=== PATIENT | female | born 1970 | race Caucasian/White ===

== ENCOUNTER 2021-03-23 15:35 | Outpatient (CLI) | payer OTHER, SELFPAY ==
--- NOTE | ~2021-03-23 | MM_ITS ---
EXAMINATION: MM screening blanche BI w griselda HISTORY: Screening TECHNIQUE: Craniocaudal and mediolateral oblique 3-D tomosynthesis images were obtained and synthetic 2-D images were generated. CAD analysis was submitted and interpreted. COMPARISON: No prior mammogram is available for comparison at this institution. BREAST PARENCHYMAL COMPOSITION: There are scattered areas of fibroglandular density. FINDINGS: There is no evidence of suspicious mass, calcification, or architectural distortion to sugg est malignancy in either breast. There has been no suspicious interval change. IMPRESSION: 1. No mammographic evidence of malignancy. 2. Recommend routine screening mammography in one year. BI-RADS Category 1: Negative Reviewed, dictated and finalized at location A.
== END 2021-03-23 15:36 | disposition home or self-care (01) ==
DX: Z12.31 Encounter for screening mammogram for malignant neoplasm of breast (principal)
CPT/HCPCS: 77063; 77067

== ENCOUNTER 2022-08-03 15:07 | Outpatient (CLI) | payer OTHER, SELFPAY ==
--- NOTE | ~2022-08-03 | MM_ITS ---
EXAMINATION: MM screening blanche BI w griselda HISTORY: Screening mammogram TECHNIQUE: Craniocaudal and mediolateral oblique 3-D tomosynthesis images were obtained and synthetic 2-D images were generated. CAD analysis was submitted and interpreted. COMPARISON: 03/23/2021 bilateral screening mammogram BREAST PARENCHYMAL COMPOSITION: There are scattered areas of fibroglandular density. FINDINGS: Right breast: There is no evidence of suspicious mass, calcification, or architectural distortion to suggest malignancy in either breast. There has been no suspicious interval change. Left breast: Possible architectural distortion in the posterior mid to upper right breast on MLO view . Diagnostic left mammogram is recommended, with ultrasound if required IMPRESSION: 1. Possible architectural distortion on the left 2. Diagnostic left mammogram is recommended, with ultrasound if required BI-RADS Category 0: Incomplete: Needs additional imaging evaluation. Reviewed, dictated and finalized at location A. 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
== END 2022-08-03 15:08 | disposition home or self-care (01) ==
PROVIDERS: Visit Provider Family Medicine
DX: Z12.31 Encounter for screening mammogram for malignant neoplasm of breast (principal); R92.8 Other abnormal and inconclusive findings on diagnostic imaging of breast
CPT/HCPCS: 77063; 77067

== ENCOUNTER 2022-10-05 11:45 | Outpatient (CLI) | payer OTHER, SELFPAY ==
--- NOTE | ~2022-10-05 | MMUS_ITS ---
EXAMINATION: MM diagnostic blanche LT w griselda, US breast LT complete HISTORY: Follow-up possible architectural distortion of the left breast TECHNIQUE: Additional 3-D tomosynthesis images of the left breast were performed and synthetic 2-D im ages were generated. CAD analysis was submitted and interpreted. High resolution complete left breast ultrasound was performed. COMPARISON: Comparison to multiple prior studies sequentially, with oldest reviewed study dated 03/23. BREAST PARENCHYMAL COMPOSITION: Breast composed of scattered areas of fibroglandular density FINDINGS: MAMMOGRAPHIC FINDINGS: There are no suspicious masses, calcifications or architectural distortion in the left breast to sugg est malignancy. ULTRASOUND: Complete US of all 4 quadrants of the left breast and retroareolar region was reviewed. Normal hetero geneous echotexture without evidence for focal solid or cystic mass. IMPRESSION: 1. No evidence for malignancy in the left breast. 2. Routine yearly screening mammogram and regular clinical breast examination are recommended. BI-RADS Category 1: Negative Reviewed, dictated and finalized at location A. 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 No evidence for malignancy in the left breast. 2. Routine yearly screening mammogram and regular clinical breast examination a re recommended. BI-RADS Category 1: Negative
== END 2022-10-05 11:46 | disposition home or self-care (01) ==
PROVIDERS: Visit Provider Family Medicine
DX: R92.8 Other abnormal and inconclusive findings on diagnostic imaging of breast (principal)
CPT/HCPCS: 76641; 77061; 77065; G0279

== ENCOUNTER 2023-08-15 10:31 | Outpatient (CLI) | payer OTHER, SELFPAY ==
--- NOTE | ~2023-08-15 | DEXA_ITS ---
Bone Density Report Name: KESHIA CLANCY I Age: 53 Sex: Female Ethnicity: White Date of : 1970 Indication: hyperparathyroidism; height loss; Referring Provider: JASS HARDIN Study: Bone densitometry was performed. Exam Date: August 15, 2023 Accession number: [id number] Bone Density: Region BMD T-score Z-score Classification AP Spine(L1-L4) 1.065 0.2 1.0 Normal Femoral Neck (Left) 0.856 0.1 0.9 Normal Total Hip (Left) 1.057 0.9 1.5 Normal Femoral Neck (Right) 0.864 0.1 0.9 Normal Total Hip (Right) 1.065 1.0 1.5 Normal Femoral Neck Mean 0.860 0.1 0.9 Normal Total Hip Mean 1.061 1.0 1.5 Normal World Health Organization criteria for BMD impression classify patients as: Normal (T-score at or above -1.0), Osteopenia (T-score between -1.0 and -2.5), or Osteoporosis (T-score at or below -2.5). 10-year Fracture Risk: FRAX not reported because: All T-scores for Spine Total, Hip Total, Femoral Neck at or above -1.0 Clinical Information Provided by Patient: Has used the following medications: Vitamin D, Calcium Has the following medical conditions: Hyperparathyroidism Patient maximum height was 64 Menopause Age: 52 No regular weight bearing exercise Drinks caffeinated beverages Onset of menses at age 16 Number of children 1 Impression: The patient has normal bone mass. Discussion: BONE DENSITY IS ABOVE THE MINIMUM DESIRABLE LEVEL AT ALL SKELETAL SITES TESTED. This patient?s bone mineral density is above the minimum desirable level (T-score -1.0 or better) at all sites measured. The patient should follow a healthful lifestyle (good nutrition with adequate calcium and vitamin D, and appropriate weight-bearing exercise). Follow-Up: Consider repeating this study in 5 years or sooner if there is some new clinical indication. Reported by: Dr. Jass Terry on 08/15/2023 11:05:00 AM. Reviewed, dictated and finalized at location A.
--- NOTE | ~2023-08-15 | MM_ITS ---
EXAMINATION: MM screening blanche BI w griselda HISTORY: Screening mammogram TECHNIQUE: Craniocaudal and mediolateral oblique 3-D tomosynthesis images were obtained and synthetic 2-D images were generated. CAD analysis was submitted and interpreted. COMPARISON: 10/05/2022 diagnostic left mammogram and complete left breast ultrasound 08/03/2022, 03/23/2021 bilateral screening mammogram examinations BREAST PARENCHYMAL COMPOSITION: The breasts are heterogeneously dense, which may obscure small masses . FINDINGS: There is no evidence of suspicious mass, calcification, or architectural distortion to sugg est malignancy in either breast. There has been no suspicious interval change. IMPRESSION: 1. No mammographic evidence of malignancy. 2. Recommend routine screening mammography in one year. BI-RADS Category 1: Negative Reviewed, dictated and finalized at location A. 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
== END 2023-08-15 10:32 | disposition home or self-care (01) ==
LOC: CHSIMG 10:34
PROVIDERS: PCP Family Medicine; Visit Provider Obstetrics & Gynecology
DX: Z12.31 Encounter for screening mammogram for malignant neoplasm of breast (principal); Z78.0 Asymptomatic menopausal state
CPT/HCPCS: 77063; 77067; 77080

== ENCOUNTER 2024-09-02 15:00 | Outpatient (CLI) | payer OTHER, SELFPAY ==
--- NOTE | ~2024-09-02 | MM_ITS ---
EXAMINATION: MM screening blanche BI w griselda HISTORY: Screening TECHNIQUE: Craniocaudal and mediolateral oblique 3-D tomosynthesis images were obtained and synthetic 2-D images were generated. CAD analysis was submitted and interpreted. COMPARISON: Comparison to multiple prior studies sequentially, with oldest reviewed study dated 03/23. BREAST PARENCHYMAL COMPOSITION: Dense: The breasts are heterogeneously dense, which may obscure small masses FINDINGS: There is no evidence of suspicious mass, calcification, or architectural distortion to sugg est malignancy in either breast. There has been no suspicious interval change. IMPRESSION: 1. No mammographic evidence of malignancy. 2. Recommend routine screening mammography in one year. BI-RADS Category 1: Negative Reviewed, dictated and finalized at location B. 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
== END 2024-09-02 15:01 | disposition home or self-care (01) ==
LOC: CHSIMG 15:01
PROVIDERS: PCP Family Medicine
DX: Z12.31 Encounter for screening mammogram for malignant neoplasm of breast (principal)
CPT/HCPCS: 77063; 77067

== ENCOUNTER 2025-02-09 12:22 | Outpatient (CLI) | payer OTHER, SELFPAY ==
--- NOTE | ~2025-02-09 | XR_ITS ---
HISTORY: Left shoulder pain, NO RECENT INJURY COMPARISON: None TECHNIQUE: 4 views of the left shoulder were performed. FINDINGS: No acute fracture. The glenohumeral and acromioclavicular joint space is maintained The visualized portion of the adjacent left lung is clear. The humeral head is well seated within the glenoid fossa. IMPRESSION: No acute fracture or anterior dislocation. Reviewed, dictated and finalized at location A.
--- OUTSIDE RECORDS SUMMARY | 2025-02-09 12:32 | XMS_ITS | Clinical Summary ---
Author Organization [facility] Address [address] [place] [address] Care Team Providers Care Tile Decorator Name Role Phone Reji Carrera MD Primary Care Provider Allergies Active Allergy Reactions Criticality Noted Date Comments Penicillins Anaphylaxis High 09/12/2020 Medications levothyroxine 112 MCG tablet 11/28/2019 Acti ve lisinopril 5 MG tablet 09/03/2020 Active guaiFENesin-code ine (GUAIFENESIN-COD EINE) 100-10 MG/5ML syrupIndications :Cough Take 10 mLs by mouth every 4 (four) hours as needed for Cough. Indications : Cough 240 mL 09/12/2020 Active Active Problems No known active problems Immunizations Immunization Administration Dates Next Due PFIZER COVID-19 (ORIGINAL FO RMULATION, PURPLE CAP) mRNA, LNP-S, PF, 30 MCG/0.3 ML DOSE 10/01/2020,09/10/2020 Family History Medical History Relation Comments Hypertension Father Cancer Mother renal Hypertension Mother Breast Cancer Paternal Aunt Breast Cancer Paternal Grandmother Relation Status Comments Father Alive Mother Alive Paternal Aunt Paternal Grandmother Social History Tobacco Use Types Packs/Day Years Used Date Smoking Tobacco: Never Smokeless Tobacco: Never Alcohol Use Standard Drinks/Week Comments Yes 0 (1 standard drink = 0.6 oz pur e alcohol) occas Comments No Sex and Gender Information Value Date Recorded Sex Assigned at Not on file Legal Sex Female 5:11 PM CDT Gender Identity Not on file Sexual Orientation Not on file Last Filed Vital Signs Vital Sign Reading Time Taken Comments Blood Pressure 130/89 09/12/2020 10:07 AM HYDROPULPER Pulse 75 09/12/2020 10:07 AM HYDROPULPER Temperature 36.7 C (98 F) 09/12/2020 10:07 AM HYDROPULPER Respiratory Rate 18 09/12/2020 10:07 AM HYDROPULPER Oxygen Saturation 100% 09/12/2020 10:07 AM HYDROPULPER Inhaled Oxygen Concentration - - Weight 66.7 kg (147 lb) 09/12/2020 10:07 AM HYDROPULPER Height 162.6 cm (5' 4 ) 09/12/2020 10:07 AM HYDROPULPER Body Mass Index 25.23 09/12/2020 10:07 AM HYDROPULPER Plan of Treatment Health Maintenance Due Date Last Done Comments Cervical Cancer Screening Pap Smear (Age 30 to 64) Every 3 Years 1972 Colorectal Cancer Screening Colonoscopy (10 Years) 1972 Annual Physical 1975 Hepatitis C 1990 DTaP, Tdap and Td Vaccines (1 - Tdap) 1991 Hepatitis B Vaccines (1 of 3 - 19+ 3-dose series) 1991 Cervical Cancer Screening Pap with HPV Testing (Age 30 to 64) Every 5 Years 2002 Cervical Cancer Screening with HPV 2002 Mammogram Screening 09/19/2021 09/19/2019, 05/28/2018, 11/29/2017, Additional history exists Pneumococcal Vaccine: 50+ Years (1 of 1 - PCV) 2022 Zoster Vaccines (1 of 2) 2022 COVID-19 Vaccine (3 - season) 2024 10/01/2020, 09/10/2020 Meningococcal B Vaccine Aged Out No l onger eligible based on patient's age to complete this topic Meningococcal Vaccine Aged Out No karis donna eligible based on patient's age to complete this topic RSV Immunizations Under 20 Months Aged Out No longer eligible based on patient's age to complete this topic Procedures Procedure Name Priority Date/Time Associated Diagnosis Comments MG SCREENING W ROYAL WALE DIGI Routine 09/19/2019 8:16 AM HYDROPULPER Visit for screening mammogram from Last 3 Months or Most Recently Relevant to Health Maintenance Results * MG SCREENING W ROYAL WALE DIGI (09/19/2019 8:16 AM HYDROPULPER) Anatomical Region Laterality Modality Breast Bilateral Mammography 09/22/2019 1:30 PM HYDROPULPER Impressions 09/22/2019 1:39 PM HYDROPULPER IMPRESSION: No interval features to suggest malignancy. In the absence of clinical symptoms, return for annual screening due in one year. RECOMMENDATION: Routine Screening, BILATERAL in 1 year ASSESSMENT: ACR BI-RADS 2 - BENIGN FINDING(S) Interpreted By: Marleni Han MD, 09/22/2019 1:30 PM Narrative 09/22/2019 1:39 PM HYDROPULPER EXAMINATION: BILATERAL SCREENING MAMMOGRAPHY CLINICAL INDICATION: 49 years of age female routine screening. Reports current use of contraceptive hormones. COMPARISON: Screening mammogram(s) new baseline study 11/11, diagnostic mammogram 06/11, right diagnostic breast ultrasound 12/09 all from [facility] in [place], [place] TECHNIQUE: Digital CC & MLO views. Tomosynthesis imaging acquisition Study read with the assistance of a computer-aided detection system. TISSUE DENSITY: The breast tissue is heterogeneously dense, which may obscure small masses. Presence of a nodular heterogeneous tissue pattern also decreases mammographic sensitivity. If patient is willing to accept potential for false positives, consider supplemental whole bilateral screening breast ultrasound surveillance or breast MRI which may optimize early breast cancer detection. FINDINGS: Marked dermal lesion. Fairly stable glandular pattern with similar asymmetric dense nodular patches, relatively unchanged when accounting for differences in technique compared to prior studies. No suspicious grouping of microcalcifications, architectural distortion, or new dominant suspicious nodule 3 dimensionally demonstrated in either breast. Yesenia Trevino NP MAMMO Final Result from Last 3 Months or Most Recently Relevant to Health Maintenance Insurance [employer] Care Teams Tile Decorator Relationship Specialty Start Date End Date Reji Carrera MD [address] [place] [id number] PCP - General FAMILY PRACTICE 09/11/19
== END 2025-02-09 12:23 | disposition home or self-care (01) ==
PROVIDERS: PCP Family Medicine
DX: M25.512 Pain in left shoulder (principal)
CPT/HCPCS: 73030

== ENCOUNTER 2025-02-26 12:09 | Outpatient (RCR) | payer OTHER, SELFPAY ==
--- NOTE | 2025-02-26 13:29 | OPREHPOC ---
Outpatient Therapy Plan of Care This is a Multidisciplinary Plan of Care that may contain components documented by all disciplines (PT, OT, and ST.) PT Problem 1 PT Problem #1 Knowledge Deficit PT Goal 1 Goal / Goal Update 1* independent with HEP 2* correct body mechanics with lifting from the floor Target Visit 8 PT Problem 2 PT Problem #2 Pain PT Goal 1 Goal / Goal Update 1* pt report pain at worst rating of 4/10 2* pt report with sleeping, awaken 1x/night due to pain Target Visit 8 PT Problem 3 PT Problem #3 Impaired Range of Motion PT Goal 1 Goal / Goal Update *increase L shoulder ROM to improve self care task performance: 1* abduction to 120' 2* ER, reaching towards back of head, fingers to cervical spine Target Visit 8 PT Problem 4 PT Problem #4 Impaired Strength PT Goal 1 Goal / Goal Update improve L shoulder and scapular strength, to improve posture and use of L arm with work and home tasks 1* L shoulder gross strength of 4+/5 2* pt stand with correct shoulder position during PT session Target Visit 8
--- NOTE | 2025-02-26 13:29 | PTOPEVAL1 ---
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 She is R hand dominant. Self assessment with DASH is 23% limitation in activity level. Pain awakens her from sleep 2x/night and abduction is the most painful motion. With the evaluation: decreased L shoulder abduction and ER motions with pain increase; weakness of L shoulder and scapular musculature, with pain increase; poor standing posture with rounded shoulders and upper trunk; Skilled PT services are indicated for modalities to decrease pain and spasms, therapeutic exercises to increase shoulder-scapular strength and ROM and education for HEP, posture and body mechanics. Plan of Care Interventions Electrical Stimulation,Hot Pack/Cold Pack,Manual Therapy,Neuro Re-education,Patient/Caregiver Education,Therapeutic Activities,Therapeutic Exercise,Ultrasound,Other Other Interventions taping PT Services Indicated Yes Treatment Frequency and 1-2x/wk for 8 visits Duration These treatments will address the objective and functional deficits as defined above. The patient will be advanced safely and appropriately in order for the patient to progress towards his/her prior level of function. Additional exercises will be introduced and as well as a comprehensive home exercise program upon discharge, if needed, ?to ensure carryover of functional gains achieved in the clinic. This treatment plan has been reviewed and agreement upon by the patient.
--- NOTE | 2025-03-26 15:36 | OPREHPOC ---
Outpatient Therapy Plan of Care This is a Multidisciplinary Plan of Care that may contain components documented by all disciplines (PT, OT, and ST.) PT Problem 1 PT Problem #1 Knowledge Deficit PT Goal 1 Goal / Goal Update 1* independent with HEP 2* correct body mechanics with lifting from the floor 03-26-25 d/c pt stopped attending PT goals not addressed Target Visit 8 PT Problem 2 PT Problem #2 Pain PT Goal 1 Goal / Goal Update 1* pt report pain at worst rating of 4/10 2* pt report with sleeping, awaken 1x/night due to pain 03-26-25 d/c pt stopped attending PT goals not addressed Target Visit 8 PT Problem 3 PT Problem #3 Impaired Range of Motion PT Goal 1 Goal / Goal Update *increase L shoulder ROM to improve self care task performance: 1* abduction to 120' 2* ER, reaching towards back of head, fingers to cervical spine 03-26-25 d/c pt stopped attending PT goals not addressed Target Visit 8 PT Problem 4 PT Problem #4 Impaired Strength PT Goal 1 Goal / Goal Update improve L shoulder and scapular strength, to improve posture and use of L arm with work and home tasks 1* L shoulder gross strength of 4+/5 2* pt stand with correct shoulder position during PT session 03-26-25 d/c pt stopped attending PT goals not addressed Target Visit 8
--- NOTE | 2025-03-26 15:36 | PTOPDC ---
Assessment and note entered by Su Peters, PT Assessment Status Discharge - Pt Not Present ICD-10 Condition Codes (PT) Pain in left shoulder M25.512 Onset December 2024 Subjective Information pt was not seen this date. Assessment PT Clinical Summary Priya received the PT evaluation on February 26 for L shoulder pain/impingement. She did not return for any further treatment. Discharge PT. The goals were not addressed. Plan of Care PT Services Indicated No
== END 2025-03-26 16:59 | disposition home or self-care (01) ==
LOC: ANHPT 12:09
PROVIDERS: PCP Family Medicine
DX: M25.512 Pain in left shoulder (principal)
CPT/HCPCS: 97110; 97161; 97530

== ENCOUNTER 2025-03-12 10:59 | Outpatient (RCR) | payer OTHER, SELFPAY ==
--- NOTE | 2025-03-17 10:00 | BUPTOPEVAL1 ---
Assessment and note entered by JT File, PT Evaluation Information Assessment Status Evaluation ICD-10 Condition Codes (PT) Pain in left shoulder M25.512 Onset 03/11/25 Subjective Information patient reports she is seeking skilled PT evaluation and care for L shoulder pain that has been going on for about 2 months. 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 she reports she has no pain at rest, but the pain increases and is intense with reaching out to her side, washing her back, and drying off with a towel at home. she reports she had xrays taken that were negative, and was prescribed no new medications for the L shoulder pain. she reports she does get pain in the middle of the night and has to adjust position to get comfortable. Reported Pain Level Pain Score 2: Self Report Pain Score 0: Self Report Assessment PT Clinical Summary mrs. robles is a 54 yo woman who preseents to skilled PT services for evaluation and treatment of L shoulder pain. she presents with deficits in L shoulder active ROM, L shoulder strength, and functional activity performance. she displays signs and symptoms consistent with L RTC tendonitis and impingement. continued skilled PT is indicated to improve her objective/functional deficits and return to prior level functional activity performance/quality of life. Plan of Care Interventions Electrical Stimulation,Hot Pack/Cold Pack,Manual Therapy,Neuro Re-education,Patient/Caregiver Education,Therapeutic Activities,Therapeutic Exercise PT Services Indicated Yes Treatment Frequency and 2x weekly for 10 visits Duration These treatments will address the objective and functional deficits as defined above. The patient will be advanced safely and appropriately in order for the patient to progress towards his/her prior level of function. Additional exercises will be introduced and as well as a comprehensive home exercise program upon discharge, if needed, ?to ensure carryover of functional gains achieved in the clinic. This treatment plan has been reviewed and agreement upon by the patient.
--- NOTE | 2025-03-17 10:00 | OPREHPOC ---
Outpatient Therapy Plan of Care This is a Multidisciplinary Plan of Care that may contain components documented by all disciplines (PT, OT, and ST.) PT Problem 1 PT Problem #1 Knowledge Deficit PT Goal 1 Goal / Goal Update independent and compliant with HEP Target Visit 5 PT Problem 2 PT Problem #2 Pain PT Goal 1 Goal / Goal Update 2/10 or less pain at worst in the last week Target Visit 10 PT Problem 3 PT Problem #3 Impaired Range of Motion PT Goal 1 Goal / Goal Update 170 degrees active L shoulder flex 170 degrees active L shoulder abd functional reach behind back to the bra line Target Visit 10 PT Problem 4 PT Problem #4 Impaired Strength PT Goal 1 Goal / Goal Update 5/5 L shoulder abd Target Visit 10 PT Problem 5 PT Problem #5 Impaired Functional Mobility PT Goal 1 Goal / Goal Update quick dash to display 10% or less functional deficits patient to get dressed, do her hair, and dry off her back without issues or pain in the L shoulder Target Visit 10
--- NOTE | 2025-04-21 07:55 | OPREHPOC ---
Outpatient Therapy Plan of Care This is a Multidisciplinary Plan of Care that may contain components documented by all disciplines (PT, OT, and ST.) PT Problem 1 PT Problem #1 Knowledge Deficit PT Goal 1 Goal / Goal Update independent and compliant with HEP Target Visit 5 Progress Met PT Problem 2 PT Problem #2 Pain PT Goal 1 Goal / Goal Update 2/10 or less pain at worst in the last week Target Visit 16 Progress Not Met PT Problem 3 PT Problem #3 Impaired Range of Motion PT Goal 1 Goal / Goal Update 170 degrees active L shoulder flex 170 degrees active L shoulder abd functional reach behind back to the bra line. met but painful Target Visit 16 Progress Partially Met PT Problem 4 PT Problem #4 Impaired Strength PT Goal 1 Goal / Goal Update 5/5 L shoulder abd Target Visit 16 PT Problem 5 PT Problem #5 Impaired Functional Mobility PT Goal 1 Goal / Goal Update quick dash to display 10% or less functional deficits patient to get dressed, do her hair, and dry off her back without issues or pain in the L shoulder Target Visit 16 Progress Not Met
--- NOTE | 2025-04-21 07:55 | PTOPREEVAL ---
Assessment and note entered by JT File, PT Evaluation Information Assessment Status Re-evaluation ICD-10 Condition Codes (PT) Pain in left shoulder M25.512 Onset 03/11/25 Subjective Information patient reports she continues to have pain, and struggles the most with reaching out to her side. she reports slight improvement since starting PT. she reports it feels tight all the time. she reports she has the most trouble reaching out to her side. Assessment PT Clinical Summary mrs. robles presents to skilled PT today for her 10th skilled PT visit for the L shoulder. she presents today with continued pain in the L shoulder and limitations in L shoulder active abduction. she does display improved functional reach with the L UE albeit with pain, and improve strength of the L UE. although she has not met significant amounts of goals, she would benefit from continued skilled PT in combination with a L shoulder injection to help reduce her inflammation and pain. Plan of Care Interventions Electrical Stimulation,Hot Pack/Cold Pack,Manual Therapy,Neuro Re-education,Patient/Caregiver Education,Therapeutic Activities,Therapeutic Exercise PT Services Indicated Yes Treatment Frequency and continue skilled PT 2x weekly for 6 more visits Duration These treatments will address the objective and functional deficits as defined above. The patient will be advanced safely and appropriately in order for the patient to progress towards his/her prior level of function. Additional exercises will be introduced and as well as a comprehensive home exercise program upon discharge, if needed, ?to ensure carryover of functional gains achieved in the clinic. This treatment plan has been reviewed and agreement upon by the patient.
--- NOTE | 2025-05-21 11:54 | OPREHPOC ---
Outpatient Therapy Plan of Care This is a Multidisciplinary Plan of Care that may contain components documented by all disciplines (PT, OT, and ST.) PT Problem 1 PT Problem #1 Knowledge Deficit PT Goal 1 Goal / Goal Update independent and compliant with HEP Target Visit 5 Progress Met PT Problem 2 PT Problem #2 Pain PT Goal 1 Goal / Goal Update 2/10 or less pain at worst in the last week Target Visit 16 Progress Not Met PT Problem 3 PT Problem #3 Impaired Range of Motion PT Goal 1 Goal / Goal Update 170 degrees active L shoulder flex -not met 170 degrees active L shoulder abd -not met functional reach behind back to the bra line. -not met Target Visit 16 Progress Not Met PT Problem 4 PT Problem #4 Impaired Strength PT Goal 1 Goal / Goal Update 5/5 L shoulder abd Target Visit 16 Progress Not Met PT Problem 5 PT Problem #5 Impaired Functional Mobility PT Goal 1 Goal / Goal Update quick dash to display 10% or less functional deficits -not met patient to get dressed, do her hair, and dry off her back without issues or pain in the L shoulder -not met Target Visit 16 Progress Not Met
--- NOTE | 2025-05-21 11:55 | PTOPDC ---
Assessment and note entered by Viola Noland, PT Evaluation Information Assessment Status Discharge ICD-10 Condition Codes (PT) Pain in left shoulder M25.512 Onset 03/11/25 Subjective Information Priya reports her left shoulder is about the same. She still has pain when she uses the arm and it is now going down to the elbow. She has difficulty reaching behind her back and lifting her arm to the side which makes donning/doffing a bra and washing/putting on deodorant the armpit difficult. She had an injection which helped her pain for just a couple days. Her pain and symptoms are back and not much better overall. She feels she may need to get a MRI and possibly another injection. She does note her pain is improved with use of ibuprofen but she tries not to take it too much due to only having one kidney. Reported Pain Level Pain Score 5: Self Report Assessment PT Clinical Summary Priya Landis has completed 16 skilled PT visits for L shoulder pain. She reports she has had an injection which only helped for a couple days and now she is about the same overall. She continues to have pain when reaching behind her back or to the side which leads to difficulty with bathing, grooming, and dressing. She demonstrates decreased and painful left shoulder AROM, decreased left shoulder strength, and positive special tests indicating supraspinatus and subscapularis injury. She will be discharged and may benefit from further imaging. Plan of Care PT Services Indicated No
== END 2025-05-21 13:30 | disposition home or self-care (01) ==
LOC: CHSPT 10:59
PROVIDERS: Visit Provider Family Medicine
DX: M25.512 Pain in left shoulder (principal)
CPT/HCPCS: 97014; 97110; 97140; 97161; 97750; G0283

== ENCOUNTER 2025-06-24 09:44 | Outpatient (CLI) | payer OTHER, SELFPAY ==
--- NOTE | ~2025-06-24 | XR_ITS ---
EXAMINATION: XR shoulder LT min 2V, 06/24/2025 10:00 CDT HISTORY: lt anterior shoulder pain, NKI, unable to raise arm COMPARISON: No comparisons available. Findings: No acute fracture or malalignment. No significant degenerative changes. Soft tissues unremarkable. Impression: No acute fracture or malalignment. Reviewed, dictated and finalized at location P. Impression: No acute fracture or malalignment.
== END 2025-06-24 09:45 | disposition home or self-care (01) ==
DX: M25.512 Pain in left shoulder (principal)
CPT/HCPCS: 73030